=== PATIENT | female | born 1990 | race Caucasian/White ===

== ENCOUNTER 2016-04-11 16:13 | Emergency (ER) | payer OTHER ==
--- NOTE | 2016-04-11 18:16 | UC ---
Dental HPI - HPI Summary HPI Summary: Started having pain last night. Was supposed to have tooth extracted before returning to school but did not because it no longer hurt. At its worst, the pain is a 7/10. Has been taking Advil, using mouthwash and salt water rinses, and using Orajel. The Advil has been helping with the pain. - History of Current Complaint Chief Complaint: UCDentalProblem Stated Complaint: DENTAL COMPLAINT Time Seen by Provider: 04/11/16 18:08 Hx Obtained From: Patient Hx Last Menstrual Period: 04/02/16 Onset/Duration: Sudden Onset Severity: Moderate Alleviating: OTC Meds - Allergies/Home Medications Allergies/Adverse Reactions: Allergies Allergy/AdvReac Type Severity Reaction Status Date / Time No Known Allergies Allergy Verified 04/11/16 18:00 Home Medications: Home Medications Ibuprofen TAB* [Advil TAB*] 800 mg PO Q8H PRN 04/11/16 [History Confirmed ] Sertraline* [Zoloft*] 50 mg PO DAILY 04/11/16 [History Confirmed 04/11/16] lamoTRIgine TAB(*) [LaMICtal TAB(*)] 50 mg PO DAILY 04/11/16 [History Confirmed 04/11/16] PMH/Surg Hx/FS Hx/Imm Hx Previously Healthy: Yes - Surgical History Surgical History: Yes Surgery Procedure, Year, and Place: wisdom teeth, root canal x2 - Family History Known Family History: Negative: Blood Disorder - Social History Occupation: Student Alcohol Use: None Substance Use Type: None Smoking Status (MU): Never Smoked Tobacco Review of Systems Constitutional: Negative Skin: Negative Eyes: Negative ENT: Dental Pain Respiratory: Negative Cardiovascular: Negative Gastrointestinal: Negative Genitourinary: Negative Motor: Negative Neurovascular: Negative Musculoskeletal: Negative Neurological: Negative Psychological: Negative All Other Systems Reviewed And Are Negative: Yes Physical Exam Triage Information Reviewed: Yes Appearance: Well-Appearing, No Pain Distress, Well-Nourished Vital Signs: Initial Vital Signs Temp 97.9 F 04/11/16 18:01 Pulse 72 04/11/16 18:01 Resp 16 04/11/16 18:01 BP 101/72 04/11/16 18:01 Pulse Ox 98 04/11/16 18:01 Vital Signs Reviewed: Yes Eye Exam: Normal Eyes: Positive: Conjunctiva Clear ENT Exam: Normal ENT: Positive: Normal ENT inspection, Hearing grossly normal, Pharynx normal, TMs normal Dental: Positive: Percussion Tenderness @ - #2, Gross Decay/Caries @ - #2, Dental Fracture @ - #2 Neck exam: Normal Neck: Positive: Supple, Nontender, No Lymphadenopathy Respiratory Exam: Normal Respiratory: Positive: Chest non-tender, Lungs clear, Normal breath sounds, No respiratory distress, No accessory muscle use Cardiovascular Exam: Normal Cardiovascular: Positive: RRR, No Murmur Musculoskeletal Exam: Normal Neurological Exam: Normal Psychological Exam: Normal Skin Exam: Normal Dental Complaint Course/Dx - Differential Dx/Diagnosis Provider Diagnoses: Toothache #2 Discharge - Discharge Plan Condition: Stable Disposition: HOME Prescriptions: Indomethacin CAP* [Indocin CAP*] 50 mg PO TID PRN #20 cap PRN Reason: Pain Penicillin VK TAB 500 MG(NF) [Penicillin VK 500 mg Tab(NF)] 500 mg PO QID #28 tab traMADol TAB* [Ultram*] 50 mg PO Q6HR PRN #15 tab MDD 4 PRN Reason: Pain Patient Education Materials: Toothache (ED) Additional Instructions: We will prescribe Penicillin. Take Tramadol at bedtime as needed for pain. Take Indocin for pain during the day. Stop all Advil while taking Indocin. Follow-up with the dentist as soon as possible.
[2016-04-11] MEDS ORDERED: Penicillin VK LIQ* 250 MG/5 ML BTL PO ONE (18:17)
[2016-04-11] MEDS ORDERED: traMADol TAB* 50 MG PO ONE (18:18)
[2016-04-11] MEDS ORDERED: Penicillin VK TAB* 250 MG PO ONE (18:32)
[2016-04-11 18:36] VITALS: BP 107/68
== END 2016-04-11 18:50 | disposition home or self-care (01) ==
LOC: UCCORT 16:13
DX: K08.89 Other specified disorders of teeth and supporting structures (principal)
CPT/HCPCS: 99203; A9270-GY; G0463